=== PATIENT | male | born 1945 | race Caucasian/White ===

== ENCOUNTER 2021-02-22 10:38 | Inpatient (IN) | payer MEDICARE ==
[~2021-02-22] VITALS: Ht 167.6 cm; Wt 81.6 kg
[2021-02-22] MEDS ORDERED: DEXAMETHASONE SOD PHOS 10 MG/1 ML VIAL IV ONE (11:00)
[2021-02-22 11:10] LABS: BASOPHILS % 0.1 % (0.0-1.0); HEMATOCRIT 31.9 % (38.2-49.6); HEMOGLOBIN 8.7 g/dL (14.0-18.0); LYMPHOCYTES # (AUTO) 1.3 (1.0-3.2); LYMPHOCYTES % 16.9 % (18.0-39.1); MEAN CORPUSCULAR HEMOGLOBIN 17.4 pg (28-32); MEAN CORPUSCULAR HGB CONC 27.3 g/dL (31-35); MEAN CORPUSCULAR VOLUME 63.8 fL (81-99); MONOCYTES % 13.1 % (4.4-11.3); NEUTROPHILS # (AUTO) 5.4 (2.1-6.9); NEUTROPHILS % 69.6 % (38.7-80.0); PLATELET COUNT 271 x10e3/uL (140-360); RED CELL DISTRIBUTION WIDTH 22.9 % (11.7-14.4)
[2021-02-22] MEDS ORDERED: KETOROLAC TROMETHAMINE 30 MG/ML VIAL IV STA (11:11)
[2021-02-22] MEDS ORDERED: ONDANSETRON HCL INJ 2MG/ML 2ML 2 MG/ML VIAL IV PRN (11:15)
[2021-02-22] MEDS ORDERED: SODIUM CHLORIDE 0.9% 1000ML 1,000 ML IV SCH ×2 (11:15)
[2021-02-22] MEDS ORDERED: ACETAMINOPHEN 325 MG TAB PO ONE (11:15)
[2021-02-22 11:38] LABS: ANION GAP 16.7 mmol/L (8-16); CREATININE, SERUM 1.13 mg/dL (0.72-1.25); POTASSIUM 3.7 mmol/L (3.5-5.1)
[2021-02-22] MEDS ORDERED: FOLIC ACID-VIT1 EACH PO (12:12)
[2021-02-22] MEDS ORDERED: PLAVIX75 MG PO (12:12)
[2021-02-22] MEDS ORDERED: LISINOPRIL2.5 MG PO (12:12)
[2021-02-22] MEDS ORDERED: PANTOPRAZOLE SO20 MG (12:12)
[2021-02-22] MEDS ORDERED: PANTOPRAZOLE SO40 M2 (12:12)
[2021-02-22] MEDS ORDERED: ARICEPT5 MG PO (12:12)
[2021-02-22] MEDS ORDERED: ATORVASTATIN CA10 MG PO (12:12)
[2021-02-22] MEDS ORDERED: B12 ACTIVE1000 MCG (12:12)
[2021-02-22] MEDS ORDERED: ASPIRIN81 MG PO (12:12)
[2021-02-22] MEDS ORDERED: ACETAMINOPHEN 325 MG TAB PO PRN (15:30)
[2021-02-22] MEDS ORDERED: REMDESIVIR 200MG 200 MG in SODIUM CHLORIDE 0.9% 100 ML IV ONE (16:00)
[2021-02-22] MEDS: CEFTRIAXONE 1 GM in SODIUM CHLORIDE 0.9% 50ML 50 ML IV SCH (16:52)
[2021-02-22] MEDS: ENOXAPARIN SOD INJ 40 MG/0.4 ML SYR SC SCH (16:52)
[2021-02-22] MEDS ORDERED: SODIUM CHLORIDE 0.9% 250ML 250 ML ONE (16:54)
[2021-02-22] MEDS ORDERED: SODIUM CHLORIDE 0.9% 100 ML ONE (16:58)
[2021-02-22 20:00] VITALS: BP_SYST 106; BP_SYST 116; BP_DIAS 70; BP_DIAS 76
[2021-02-22 21:00] VITALS: BP 106/76
[2021-02-23] VITALS (9 sets, daily range): BP systolic 119–151; BP diastolic 68–86
[2021-02-23 06:33] LABS: HEMATOCRIT 31.2 % (38.2-49.6); HEMOGLOBIN 8.3 g/dL (14.0-18.0); MEAN CORPUSCULAR HEMOGLOBIN 17.3 pg (28-32); MEAN CORPUSCULAR HGB CONC 26.6 g/dL (31-35); MONOCYTES # (AUTO) 0.8 (0.2-0.8); MONOCYTES % 11.5 % (4.4-11.3); NEUTROPHILS % 73.1 % (38.7-80.0); PLATELET COUNT 280 x10e3/uL (140-360); RED CELL DISTRIBUTION WIDTH 23.1 % (11.7-14.4)
[2021-02-23 07:16] LABS: ANION GAP 12.9 mmol/L (8-16); CREATININE, SERUM 0.8 mg/dL (0.72-1.25); POTASSIUM 3.9 mmol/L (3.5-5.1)
[2021-02-23 07:36] LABS: % IRON SATURATION 5 % (15-50); IRON 16 ug/dL (65-175); TOTAL IRON BINDING CAPACITY 349 ug/dL (261-478); TRANSFERRIN 249 mg/dL (174-364)
[2021-02-23] MEDS: ASPIRIN 81 MG ENTERIC COATED PO SCH (09:24)
[2021-02-23] MEDS: CEFTRIAXONE 1 GM in SODIUM CHLORIDE 0.9% 50ML 50 ML IV SCH (09:24)
[2021-02-23] MEDS: DEXAMETHASONE SOD PHOS INJ 4 MG/ML SDV IV SCH (09:24)
[2021-02-23] MEDS: REMDESIVIR 100MG 100 MG in SODIUM CHLORIDE 0.9% 100 ML IV SCH (15:16)
[2021-02-23] MEDS: IRON SUCROSE 100 MG in SODIUM CHLORIDE 0.9% 100 ML 100 ML IV SCH (15:18)
[2021-02-23] MEDS: ENOXAPARIN SOD INJ 40 MG/0.4 ML SYR SC SCH (16:31)
[2021-02-24 04:00] VITALS: BP 136/77
[2021-02-24] MEDS: ASPIRIN 81 MG ENTERIC COATED PO SCH (08:29)
[2021-02-24] MEDS: CEFTRIAXONE 1 GM in SODIUM CHLORIDE 0.9% 50ML 50 ML IV SCH (08:29)
[2021-02-24] MEDS: DEXAMETHASONE SOD PHOS INJ 4 MG/ML SDV IV SCH (08:29)
[2021-02-24 09:15] VITALS: BP 148/71
[2021-02-24 10:03] VITALS: BP 148/71
[2021-02-24] MEDS ORDERED: CLONIDINE HCL 0.1 MG TAB PO PRN (11:00)
[2021-02-24 12:05] VITALS: BP 131/79
[2021-02-24] MEDS: IRON SUCROSE 100 MG in SODIUM CHLORIDE 0.9% 100 ML 100 ML IV SCH (14:20)
[2021-02-24] MEDS: REMDESIVIR 100MG 100 MG in SODIUM CHLORIDE 0.9% 100 ML IV SCH (14:46)
[2021-02-24] MEDS: ENOXAPARIN SOD INJ 40 MG/0.4 ML SYR SC SCH (16:43)
[2021-02-24 18:00] VITALS: BP 136/87
[2021-02-24 21:00] VITALS: BP 121/69
[2021-02-24] MEDS: DONEPEZIL HCL 5 MG TAB PO SCH (21:06)
[2021-02-24] MEDS: ATORVASTATIN 40 MG TAB PO SCH (21:06)
[2021-02-25 00:11] VITALS: BP 128/74
[2021-02-25 04:21] VITALS: BP 138/82
[2021-02-25 06:03] LABS: BASOPHILS % 0.1 % (0.0-1.0); HEMATOCRIT 31.8 % (38.2-49.6); HEMOGLOBIN 8.5 g/dL (14.0-18.0); LYMPHOCYTES # (AUTO) 0.9 (1.0-3.2); LYMPHOCYTES % 9.6 % (18.0-39.1); MEAN CORPUSCULAR HEMOGLOBIN 17.3 pg (28-32); MEAN CORPUSCULAR HGB CONC 26.7 g/dL (31-35); MEAN CORPUSCULAR VOLUME 64.8 fL (81-99); MONOCYTES # (AUTO) 1.2 (0.2-0.8); MONOCYTES % 13.2 % (4.4-11.3); NEUTROPHILS # (AUTO) 6.8 (2.1-6.9); PLATELET COUNT 317 x10e3/uL (140-360); RED BLOOD COUNT 4.91 x10e6/uL (4.3-5.7); RED CELL DISTRIBUTION WIDTH 23.7 % (11.7-14.4)
[2021-02-25 06:54] LABS: ALBUMIN/GLOBULIN RATIO 0.9 (0.8-2.0); ANION GAP 11.4 mmol/L (8-16); CALCIUM 8.6 mg/dL (8.4-10.2); CREATININE, SERUM 0.77 mg/dL (0.72-1.25); POTASSIUM 4.4 mmol/L (3.5-5.1)
[2021-02-25 08:17] LABS: LYMPHOCYTES % (MANUAL) 10 % (19-48); MONOCYTES % (MANUAL) 12 % (3.4-9.0); NEUTROPHILS % (MANUAL) 78 % (40-74); NUCLEATED RED BLOOD CELLS 1; PLATELET ESTIMATE ADEQUATE; PLATELET MORPHOLOGY COMMENT FEW GIANT; RBC MORPHOLOGY COMMENT NORMAL
[2021-02-25] MEDS: DEXAMETHASONE SOD PHOS INJ 4 MG/ML SDV IV SCH (08:44)
[2021-02-25] MEDS: CEFTRIAXONE 1 GM in SODIUM CHLORIDE 0.9% 50ML 50 ML IV SCH (08:45)
[2021-02-25] MEDS: CLOPIDOGREL BISULFATE 75 MG TAB PO SCH (08:45)
[2021-02-25] MEDS: ASPIRIN 81 MG ENTERIC COATED PO SCH (08:45)
[2021-02-25] MEDS: ASCORBIC ACID 500 MG TAB PO SCH (08:46)
[2021-02-25] MEDS: PANTOPRAZOLE SODIUM 40 MG SUSPDR.PKT PO SCH (08:46)
[2021-02-25] MEDS: LISINOPRIL 2.5 MG TAB PO SCH (08:56)
[2021-02-25 08:57] VITALS: BP 135/77
[2021-02-25] MEDS ORDERED: ASPIRIN 81 MG CHEW TAB PO SCH (09:00)
[2021-02-25 12:00] VITALS: BP 135/72
[2021-02-25] MEDS: REMDESIVIR 100MG 100 MG in SODIUM CHLORIDE 0.9% 100 ML IV SCH (13:45)
[2021-02-25] MEDS: IRON SUCROSE 100 MG in SODIUM CHLORIDE 0.9% 100 ML 100 ML IV SCH (15:30)
[2021-02-25] MEDS: ENOXAPARIN SOD INJ 40 MG/0.4 ML SYR SC SCH (16:36)
[2021-02-25 20:00] VITALS: BP 115/90
[2021-02-25] MEDS: ATORVASTATIN 40 MG TAB PO SCH (20:57)
[2021-02-25] MEDS: DONEPEZIL HCL 5 MG TAB PO SCH (20:57)
[2021-02-25 21:00] VITALS: BP 115/90
[2021-02-26] VITALS (8 sets, daily range): BP systolic 121–141; BP diastolic 59–82
[2021-02-26] MEDS ORDERED: CEFTRIAXONE 1 GM VIAL ONE (08:11)
[2021-02-26] MEDS: PANTOPRAZOLE SODIUM 40 MG SUSPDR.PKT PO SCH (09:00)
[2021-02-26] MEDS: CEFTRIAXONE 1 GM in SODIUM CHLORIDE 0.9% 50ML 50 ML IV SCH (09:00)
[2021-02-26] MEDS: CLOPIDOGREL BISULFATE 75 MG TAB PO SCH (09:00)
[2021-02-26] MEDS: LISINOPRIL 2.5 MG TAB PO SCH (09:00)
[2021-02-26] MEDS: ASPIRIN 81 MG ENTERIC COATED PO SCH (09:00)
[2021-02-26] MEDS: ASCORBIC ACID 500 MG TAB PO SCH (09:00)
[2021-02-26] MEDS: DEXAMETHASONE SOD PHOS INJ 4 MG/ML SDV IV SCH (09:00)
[2021-02-26] MEDS: REMDESIVIR 100MG 100 MG in SODIUM CHLORIDE 0.9% 100 ML IV SCH (14:00)
[2021-02-26] MEDS: IRON SUCROSE 100 MG in SODIUM CHLORIDE 0.9% 100 ML 100 ML IV SCH (15:00)
[2021-02-26] MEDS: ENOXAPARIN SOD INJ 40 MG/0.4 ML SYR SC SCH (16:10)
[2021-02-26] MEDS ORDERED: REMDESIVIR 100MG 100 MG in SODIUM CHLORIDE 0.9% 100 ML IV SCH (16:30)
[2021-02-26] MEDS: ATORVASTATIN 40 MG TAB PO SCH (19:54)
[2021-02-26] MEDS: DONEPEZIL HCL 5 MG TAB PO SCH (19:54)
[2021-02-27] VITALS: BP 140/71
[2021-02-27 04:00] VITALS: BP 134/76
[2021-02-27 06:49] LABS: BASOPHILS % 0.1 % (0.0-1.0); EOSINOPHILS % 0.1 % (0.0-6.0); HEMATOCRIT 32.2 % (38.2-49.6); LYMPHOCYTES # (AUTO) 1.3 (1.0-3.2); LYMPHOCYTES % 9.4 % (18.0-39.1); MEAN CORPUSCULAR HEMOGLOBIN 18.1 pg (28-32); MEAN CORPUSCULAR VOLUME 64.7 fL (81-99); MONOCYTES # (AUTO) 1.3 (0.2-0.8); MONOCYTES % 9.7 % (4.4-11.3); NEUTROPHILS # (AUTO) 10.5 (2.1-6.9); PLATELET COUNT 358 x10e3/uL (140-360); RED BLOOD COUNT 4.98 x10e6/uL (4.3-5.7); RED CELL DISTRIBUTION WIDTH 23.7 % (11.7-14.4)
[2021-02-27 07:26] LABS: ALBUMIN 2.9 g/dL (3.5-5.0); ALBUMIN/GLOBULIN RATIO 0.9 (0.8-2.0); ANION GAP 11.8 mmol/L (8-16); CALCIUM 8.4 mg/dL (8.4-10.2); CREATININE, SERUM 0.68 mg/dL (0.72-1.25); POTASSIUM 3.8 mmol/L (3.5-5.1)
[2021-02-27 08:00] VITALS: BP 127/73
[2021-02-27] MEDS: ASPIRIN 81 MG ENTERIC COATED PO SCH (09:00)
[2021-02-27] MEDS: LISINOPRIL 2.5 MG TAB PO SCH (09:00)
[2021-02-27] MEDS: PANTOPRAZOLE SODIUM 40 MG SUSPDR.PKT PO SCH (09:00)
[2021-02-27] MEDS: ASCORBIC ACID 500 MG TAB PO SCH (09:00)
[2021-02-27] MEDS: CLOPIDOGREL BISULFATE 75 MG TAB PO SCH (09:00)
[2021-02-27] MEDS: DEXAMETHASONE SOD PHOS INJ 4 MG/ML SDV IV SCH (09:00)
[2021-02-27 11:14] VITALS: BP 127/74
[2021-02-27 12:00] VITALS: BP 126/73
[2021-02-27] MEDS ORDERED: BISACODYL 5 MG TAB EC PO ONE (14:00)
[2021-02-27] MEDS: DOCUSATE SODIUM 100 MG CAP PO SCH (14:03)
[2021-02-27] MEDS: IRON SUCROSE 100 MG in SODIUM CHLORIDE 0.9% 100 ML 100 ML IV SCH (14:04)
[2021-02-27 16:00] VITALS: BP 103/68
[2021-02-27] MEDS: ENOXAPARIN SOD INJ 40 MG/0.4 ML SYR SC SCH (16:39)
[2021-02-27] MEDS: ATORVASTATIN 40 MG TAB PO SCH (20:27)
[2021-02-27] MEDS: DONEPEZIL HCL 5 MG TAB PO SCH (20:27)
[2021-02-28] VITALS (9 sets, daily range): BP systolic 117–148; BP diastolic 51–92
[2021-02-28 05:21] LABS: BASOPHILS % 0.1 % (0.0-1.0); EOSINOPHILS % 0.1 % (0.0-6.0); HEMATOCRIT 37.1 % (38.2-49.6); HEMOGLOBIN 9.8 g/dL (14.0-18.0); LYMPHOCYTES # (AUTO) 1.1 (1.0-3.2); LYMPHOCYTES % 6.4 % (18.0-39.1); MEAN CORPUSCULAR HEMOGLOBIN 17.9 pg (28-32); MEAN CORPUSCULAR HGB CONC 26.4 g/dL (31-35); MEAN CORPUSCULAR VOLUME 67.7 fL (81-99); MONOCYTES % 5.9 % (4.4-11.3); NEUTROPHILS % 84.4 % (38.7-80.0); PLATELET COUNT 360 x10e3/uL (140-360); RED BLOOD COUNT 5.48 x10e6/uL (4.3-5.7); RED CELL DISTRIBUTION WIDTH 25.9 % (11.7-14.4)
[2021-02-28 05:44] LABS: ALBUMIN 3.1 g/dL (3.5-5.0); ALBUMIN/GLOBULIN RATIO 0.9 (0.8-2.0); ANION GAP 12.2 mmol/L (8-16); CALCIUM 8.7 mg/dL (8.4-10.2); CREATININE, SERUM 0.77 mg/dL (0.72-1.25); POTASSIUM 4.2 mmol/L (3.5-5.1)
[2021-02-28] MEDS: PANTOPRAZOLE SODIUM 40 MG SUSPDR.PKT PO SCH (09:17)
[2021-02-28] MEDS: CLOPIDOGREL BISULFATE 75 MG TAB PO SCH (09:17)
[2021-02-28] MEDS: LISINOPRIL 2.5 MG TAB PO SCH (09:17)
[2021-02-28] MEDS: ASCORBIC ACID 500 MG TAB PO SCH (09:17)
[2021-02-28] MEDS: ASPIRIN 81 MG ENTERIC COATED PO SCH (09:17)
[2021-02-28] MEDS: DOCUSATE SODIUM 100 MG CAP PO SCH (09:17)
[2021-02-28] MEDS: DEXAMETHASONE SOD PHOS INJ 4 MG/ML SDV IV SCH (09:17)
[2021-02-28 11:01] LABS: LYMPHOCYTES % (MANUAL) 10 % (19-48); MONOCYTES % (MANUAL) 5 % (3.4-9.0); NEUTROPHILS % (MANUAL) 85 % (40-74)
[2021-02-28 11:02] LABS: HYPOCHROMASIA MODERATE; OVALOCYTES FEW; PLATELET ESTIMATE ADEQUATE; PLATELET MORPHOLOGY COMMENT NORMAL; POLYCHROMASIA MODE; RBC MORPHOLOGY COMMENT NORMAL
[2021-02-28] MEDS: ENOXAPARIN SOD INJ 40 MG/0.4 ML SYR SC SCH (16:39)
[2021-02-28] MEDS: DEXMEDETOMIDINE 400MCG/NS100ML 100 ML IV PRN (20:03)
[2021-02-28] MEDS: ATORVASTATIN 40 MG TAB PO SCH (20:46)
[2021-02-28] MEDS: DONEPEZIL HCL 5 MG TAB PO SCH (20:46)
[2021-03-01] VITALS (10 sets, daily range): BP systolic 82–97; BP diastolic 55–63
[2021-03-01 04:12] LABS: BASOPHILS % 0.1 % (0.0-1.0); EOSINOPHILS % 0.1 % (0.0-6.0); HEMATOCRIT 34.9 % (38.2-49.6); HEMOGLOBIN 9.3 g/dL (14.0-18.0); LYMPHOCYTES # (AUTO) 0.7 (1.0-3.2); LYMPHOCYTES % 4.7 % (18.0-39.1); MEAN CORPUSCULAR HEMOGLOBIN 18.6 pg (28-32); MEAN CORPUSCULAR HGB CONC 26.6 g/dL (31-35); MEAN CORPUSCULAR VOLUME 69.9 fL (81-99); MONOCYTES # (AUTO) 0.7 (0.2-0.8); MONOCYTES % 4.6 % (4.4-11.3); NEUTROPHILS # (AUTO) 12.9 (2.1-6.9); NEUTROPHILS % 88.5 % (38.7-80.0); PLATELET COUNT 335 x10e3/uL (140-360); RED BLOOD COUNT 4.99 x10e6/uL (4.3-5.7); RED CELL DISTRIBUTION WIDTH 27.1 % (11.7-14.4)
[2021-03-01 04:32] LABS: ALBUMIN/GLOBULIN RATIO 0.9 (0.8-2.0); ANION GAP 13.3 mmol/L (8-16); CALCIUM 8.6 mg/dL (8.4-10.2); CREATININE, SERUM 0.83 mg/dL (0.72-1.25); POTASSIUM 4.3 mmol/L (3.5-5.1)
[2021-03-01] MEDS: PANTOPRAZOLE SODIUM 40 MG SUSPDR.PKT PO SCH (07:46)
[2021-03-01] MEDS: DOCUSATE SODIUM 100 MG CAP PO SCH (07:46)
[2021-03-01] MEDS: CLOPIDOGREL BISULFATE 75 MG TAB PO SCH (07:46)
[2021-03-01] MEDS: ASCORBIC ACID 500 MG TAB PO SCH (07:46)
[2021-03-01] MEDS: LISINOPRIL 2.5 MG TAB PO SCH (07:46)
[2021-03-01] MEDS: ASPIRIN 81 MG ENTERIC COATED PO SCH (07:46)
[2021-03-01] MEDS: DEXAMETHASONE SOD PHOS INJ 4 MG/ML SDV IV SCH (09:52)
[2021-03-01] MEDS: PIPERACILLIN/TAZOBACTAM 3.375 GM in SODIUM CHLORIDE 0.9% 50ML 50 ML IV SCH ×2 (16:05→22:00)
[2021-03-01] MEDS: ENOXAPARIN SOD INJ 40 MG/0.4 ML SYR SC SCH (16:05)
[2021-03-01] MEDS: DEXMEDETOMIDINE 400MCG/NS100ML 100 ML IV PRN (17:41)
[2021-03-01] MEDS: DONEPEZIL HCL 5 MG TAB PO SCH (20:54)
[2021-03-01] MEDS: ATORVASTATIN 40 MG TAB PO SCH (20:55)
[2021-03-02] VITALS (11 sets, daily range): BP systolic 95–124; BP diastolic 57–73
[2021-03-02] MEDS: PIPERACILLIN/TAZOBACTAM 3.375 GM in SODIUM CHLORIDE 0.9% 50ML 50 ML IV SCH ×3 (04:53→22:25)
[2021-03-02] MEDS: DEXMEDETOMIDINE 400MCG/NS100ML 100 ML IV PRN ×2 (05:30→17:30)
[2021-03-02] MEDS: CLOPIDOGREL BISULFATE 75 MG TAB PO SCH (08:35)
[2021-03-02] MEDS: DOCUSATE SODIUM 100 MG CAP PO SCH (08:35)
[2021-03-02] MEDS: ASPIRIN 81 MG ENTERIC COATED PO SCH (08:35)
[2021-03-02] MEDS: ASCORBIC ACID 500 MG TAB PO SCH (08:35)
[2021-03-02] MEDS: PANTOPRAZOLE SODIUM 40 MG SUSPDR.PKT PO SCH (08:35)
[2021-03-02] MEDS: DEXAMETHASONE SOD PHOS INJ 4 MG/ML SDV IV SCH (08:51)
[2021-03-02] MEDS: ENOXAPARIN SOD INJ 40 MG/0.4 ML SYR SC SCH (16:23)
[2021-03-02] MEDS: DONEPEZIL HCL 5 MG TAB PO SCH (20:12)
[2021-03-02] MEDS: ATORVASTATIN 40 MG TAB PO SCH (20:12)
[2021-03-03] VITALS (19 sets, daily range): BP systolic 87–118; BP diastolic 57–68
[2021-03-03] MEDS: DEXMEDETOMIDINE 400MCG/NS100ML 100 ML IV PRN ×3 (00:27→16:54)
[2021-03-03 05:48] LABS: BASOPHILS % 0.1 % (0.0-1.0); EOSINOPHILS % 0.2 % (0.0-6.0); HEMOGLOBIN 9.9 g/dL (14.0-18.0); LYMPHOCYTES # (AUTO) 0.5 (1.0-3.2); LYMPHOCYTES % 2.9 % (18.0-39.1); MEAN CORPUSCULAR HEMOGLOBIN 18.8 pg (28-32); MEAN CORPUSCULAR HGB CONC 26.1 g/dL (31-35); MEAN CORPUSCULAR VOLUME 72.1 fL (81-99); MONOCYTES # (AUTO) 0.8 (0.2-0.8); MONOCYTES % 4.9 % (4.4-11.3); NEUTROPHILS # (AUTO) 15.2 (2.1-6.9); NEUTROPHILS % 91.1 % (38.7-80.0); PLATELET COUNT 340 x10e3/uL (140-360); RED BLOOD COUNT 5.27 x10e6/uL (4.3-5.7); RED CELL DISTRIBUTION WIDTH 29.6 % (11.7-14.4)
[2021-03-03] MEDS: PIPERACILLIN/TAZOBACTAM 3.375 GM in SODIUM CHLORIDE 0.9% 50ML 50 ML IV SCH ×3 (06:03→21:52)
[2021-03-03 06:24] LABS: ALBUMIN 2.9 g/dL (3.5-5.0); ALBUMIN/GLOBULIN RATIO 0.8 (0.8-2.0); ANION GAP 14.4 mmol/L (8-16); CALCIUM 8.8 mg/dL (8.4-10.2); CREATININE, SERUM 0.86 mg/dL (0.72-1.25); POTASSIUM 4.4 mmol/L (3.5-5.1)
[2021-03-03] MEDS: CLOPIDOGREL BISULFATE 75 MG TAB PO SCH (09:00)
[2021-03-03] MEDS: ASPIRIN 81 MG ENTERIC COATED PO SCH (09:00)
[2021-03-03] MEDS: PANTOPRAZOLE SODIUM 40 MG SUSPDR.PKT PO SCH (09:00)
[2021-03-03] MEDS: ASCORBIC ACID 500 MG TAB PO SCH (09:00)
[2021-03-03] MEDS: DOCUSATE SODIUM 100 MG CAP PO SCH (09:00)
[2021-03-03] MEDS: DEXAMETHASONE SOD PHOS INJ 4 MG/ML SDV IV SCH (09:44)
[2021-03-03] MEDS ORDERED: DEXTROSE 5%/0.9% SOD CHL 1,000 ML IV ONE (16:15)
[2021-03-03] MEDS ORDERED: DEXTROSE 5% 1,000 ML IV SCH (16:30)
[2021-03-03] MEDS: ENOXAPARIN SOD INJ 40 MG/0.4 ML SYR SC SCH (19:19)
[2021-03-03] MEDS: ATORVASTATIN 40 MG TAB PO SCH (21:00)
[2021-03-03] MEDS: DONEPEZIL HCL 5 MG TAB PO SCH (21:00)
[2021-03-03] MEDS ORDERED: DEXTROSE 5%/0.45% SOD CHL 1,000 ML IV SCH (21:45)
[2021-03-04] VITALS (13 sets, daily range): BP systolic 99–124; BP diastolic 64–99
[2021-03-04] MEDS: DEXMEDETOMIDINE 400MCG/NS100ML 100 ML IV PRN ×2 (00:41→09:21)
[2021-03-04 06:21] LABS: BASOPHILS % 0.1 % (0.0-1.0); EOSINOPHILS # (AUTO) 0.1 (0.0-0.4); EOSINOPHILS % 0.8 % (0.0-6.0); HEMATOCRIT 39.1 % (38.2-49.6); HEMOGLOBIN 10.4 g/dL (14.0-18.0); LYMPHOCYTES # (AUTO) 0.5 (1.0-3.2); LYMPHOCYTES % 2.9 % (18.0-39.1); MEAN CORPUSCULAR HEMOGLOBIN 19.1 pg (28-32); MEAN CORPUSCULAR HGB CONC 26.6 g/dL (31-35); MEAN CORPUSCULAR VOLUME 71.9 fL (81-99); MONOCYTES # (AUTO) 0.7 (0.2-0.8); MONOCYTES % 4.1 % (4.4-11.3); NEUTROPHILS # (AUTO) 15.5 (2.1-6.9); NEUTROPHILS % 91.4 % (38.7-80.0); PLATELET COUNT 353 x10e3/uL (140-360); RED BLOOD COUNT 5.44 x10e6/uL (4.3-5.7); RED CELL DISTRIBUTION WIDTH 30.5 % (11.7-14.4)
[2021-03-04 06:26] LABS: ANION GAP 13.9 mmol/L (8-16); CALCIUM 8.9 mg/dL (8.4-10.2); CREATININE, SERUM 0.86 mg/dL (0.72-1.25); POTASSIUM 3.9 mmol/L (3.5-5.1)
[2021-03-04] MEDS: ASPIRIN 81 MG ENTERIC COATED PO SCH (07:58)
[2021-03-04] MEDS: CLOPIDOGREL BISULFATE 75 MG TAB PO SCH (07:59)
[2021-03-04] MEDS: ASCORBIC ACID 500 MG TAB PO SCH (07:59)
[2021-03-04] MEDS: DOCUSATE SODIUM 100 MG CAP PO SCH (07:59)
[2021-03-04] MEDS: PANTOPRAZOLE SODIUM 40 MG SUSPDR.PKT PO SCH (07:59)
[2021-03-04] MEDS: DEXTROSE 5% 1,000 ML IV SCH ×2 (09:21→20:47)
[2021-03-04] MEDS: ENOXAPARIN SOD INJ 40 MG/0.4 ML SYR SC SCH (16:52)
[2021-03-04] MEDS ORDERED: DILTIAZEM HCL 5 MG/ML 5 ML VIAL IV ONE (18:55)
[2021-03-04] MEDS ORDERED: DIGOXIN INJ 0.25 MG/ML 2 ML AMP IV ONE (19:25)
[2021-03-04] MEDS: ATORVASTATIN 40 MG TAB PO SCH (20:40)
[2021-03-04] MEDS: DONEPEZIL HCL 5 MG TAB PO SCH (20:40)
[2021-03-04] MEDS ORDERED: SODIUM CHLORIDE 0.9% 250ML 250 ML ONE (23:28)
[2021-03-05] VITALS (13 sets, daily range): BP systolic 78–129; BP diastolic 41–87
[2021-03-05] MEDS ORDERED: SODIUM CHLORIDE 0.9% 500ML 500 ML ONE (03:20)
[2021-03-05 03:47] LABS: BASOPHILS % 0.1 % (0.0-1.0); EOSINOPHILS # (AUTO) 0.2 (0.0-0.4); EOSINOPHILS % 1.3 % (0.0-6.0); HEMATOCRIT 37.4 % (38.2-49.6); HEMOGLOBIN 9.8 g/dL (14.0-18.0); LYMPHOCYTES # (AUTO) 0.5 (1.0-3.2); LYMPHOCYTES % 3.1 % (18.0-39.1); MEAN CORPUSCULAR HEMOGLOBIN 19.3 pg (28-32); MEAN CORPUSCULAR HGB CONC 26.2 g/dL (31-35); MEAN CORPUSCULAR VOLUME 73.8 fL (81-99); MONOCYTES # (AUTO) 0.7 (0.2-0.8); MONOCYTES % 4.8 % (4.4-11.3); NEUTROPHILS # (AUTO) 13.2 (2.1-6.9); NEUTROPHILS % 90.2 % (38.7-80.0); PLATELET COUNT 269 x10e3/uL (140-360); RED BLOOD COUNT 5.07 x10e6/uL (4.3-5.7); RED CELL DISTRIBUTION WIDTH 30.2 % (11.7-14.4)
[2021-03-05 04:06] LABS: ALBUMIN 2.4 g/dL (3.5-5.0); ALBUMIN/GLOBULIN RATIO 0.6 (0.8-2.0); ANION GAP 12.9 mmol/L (8-16); CALCIUM 8.2 mg/dL (8.4-10.2); CREATININE, SERUM 0.97 mg/dL (0.72-1.25); POTASSIUM 3.9 mmol/L (3.5-5.1)
[2021-03-05] MEDS: DEXMEDETOMIDINE 400MCG/NS100ML 100 ML IV PRN ×3 (08:00→19:30)
[2021-03-05] MEDS: ASPIRIN 81 MG ENTERIC COATED PO SCH (09:00)
[2021-03-05] MEDS: CLOPIDOGREL BISULFATE 75 MG TAB PO SCH (09:00)
[2021-03-05] MEDS: PANTOPRAZOLE SODIUM 40 MG SUSPDR.PKT PO SCH (09:00)
[2021-03-05] MEDS: BACITRACIN ZINC 15 GM OINT TOP SCH (09:00)
[2021-03-05] MEDS: ASCORBIC ACID 500 MG TAB PO SCH (09:00)
[2021-03-05] MEDS: DOCUSATE SODIUM 100 MG CAP PO SCH (09:00)
[2021-03-05] MEDS: DEXTROSE 5% 1,000 ML IV SCH (12:18)
[2021-03-05] MEDS: CEFEPIME 1 GM in SODIUM CHLORIDE 0.9% 50ML 50 ML IV SCH ×2 (14:30→22:05)
[2021-03-05] MEDS ORDERED: DIGOXIN INJ 0.25 MG/ML 2 ML AMP IV NR (14:45)
[2021-03-05] MEDS ORDERED: ENOXAPARIN SOD INJ 40 MG/0.4 ML SYR SC SCH (17:00)
[2021-03-05] MEDS: ATORVASTATIN 40 MG TAB PO SCH (21:00)
[2021-03-05] MEDS: DONEPEZIL HCL 5 MG TAB PO SCH (21:00)
[2021-03-06] VITALS (24 sets, daily range): BP systolic 74–141; BP diastolic 44–92
[2021-03-06] MEDS: DEXTROSE 5% 1,000 ML IV SCH ×2 (03:01→13:30)
[2021-03-06] MEDS: DEXMEDETOMIDINE 400MCG/NS100ML 100 ML IV PRN ×3 (03:30→16:32)
[2021-03-06 06:05] LABS: BASOPHILS % 0.1 % (0.0-1.0); EOSINOPHILS % 0.2 % (0.0-6.0); HEMATOCRIT 34.2 % (38.2-49.6); LYMPHOCYTES # (AUTO) 0.5 (1.0-3.2); LYMPHOCYTES % 4.1 % (18.0-39.1); MEAN CORPUSCULAR HEMOGLOBIN 19.6 pg (28-32); MEAN CORPUSCULAR HGB CONC 26.3 g/dL (31-35); MEAN CORPUSCULAR VOLUME 74.5 fL (81-99); MONOCYTES # (AUTO) 0.6 (0.2-0.8); MONOCYTES % 4.3 % (4.4-11.3); NEUTROPHILS # (AUTO) 11.6 (2.1-6.9); NEUTROPHILS % 90.5 % (38.7-80.0); PLATELET COUNT 159 x10e3/uL (140-360); RED BLOOD COUNT 4.59 x10e6/uL (4.3-5.7); RED CELL DISTRIBUTION WIDTH 30.6 % (11.7-14.4)
[2021-03-06] MEDS: CEFEPIME 1 GM in SODIUM CHLORIDE 0.9% 50ML 50 ML IV SCH ×3 (06:10→22:20)
[2021-03-06 07:26] LABS: ANION GAP 14.9 mmol/L (8-16); BILIRUBIN,DIRECT 1.7 mg/dL (0.0-0.5); CALCIUM 7.5 mg/dL (8.4-10.2); CREATININE, SERUM 0.82 mg/dL (0.72-1.25); POTASSIUM 3.9 mmol/L (3.5-5.1)
[2021-03-06] MEDS: ASPIRIN 81 MG ENTERIC COATED PO SCH (09:00)
[2021-03-06] MEDS: CLOPIDOGREL BISULFATE 75 MG TAB PO SCH (09:00)
[2021-03-06] MEDS: DOCUSATE SODIUM 100 MG CAP PO SCH (09:00)
[2021-03-06] MEDS: ASCORBIC ACID 500 MG TAB PO SCH (09:00)
[2021-03-06] MEDS: PANTOPRAZOLE SODIUM 40 MG SUSPDR.PKT PO SCH (09:00)
[2021-03-06] MEDS: BACITRACIN ZINC 15 GM OINT TOP SCH (09:44)
[2021-03-06] MEDS ORDERED: METOPROLOL TARTRATE INJ 1 MG/ML VIAL IV PRN (11:30)
[2021-03-06] MEDS: ATORVASTATIN 40 MG TAB PO SCH (21:00)
[2021-03-06] MEDS: DONEPEZIL HCL 5 MG TAB PO SCH (21:00)
[2021-03-06] MEDS: ENOXAPARIN INJ 80 MG/0.8 ML SYR SC SCH (22:00)
[2021-03-06] MEDS ORDERED: LORAZEPAM INJ 2 MG/ML VIAL IV ONE (22:15)
[2021-03-07] VITALS (19 sets, daily range): BP systolic 71–140; BP diastolic 38–89
[2021-03-07] MEDS: CEFEPIME 1 GM in SODIUM CHLORIDE 0.9% 50ML 50 ML IV SCH ×2 (05:27→14:29)
[2021-03-07] MEDS: DEXTROSE 5% 1,000 ML IV SCH (05:27)
[2021-03-07 06:10] LABS: BASOPHILS % 0.2 % (0.0-1.0); HEMATOCRIT 34.9 % (38.2-49.6); LYMPHOCYTES # (AUTO) 0.7 (1.0-3.2); MEAN CORPUSCULAR HEMOGLOBIN 19.5 pg (28-32); MEAN CORPUSCULAR HGB CONC 25.8 g/dL (31-35); MEAN CORPUSCULAR VOLUME 75.7 fL (81-99); MONOCYTES # (AUTO) 1.1 (0.2-0.8); MONOCYTES % 5.1 % (4.4-11.3); NEUTROPHILS # (AUTO) 19.6 (2.1-6.9); NEUTROPHILS % 90.5 % (38.7-80.0); PLATELET COUNT 136 x10e3/uL (140-360); RED BLOOD COUNT 4.61 x10e6/uL (4.3-5.7); RED CELL DISTRIBUTION WIDTH 31.2 % (11.7-14.4)
[2021-03-07 06:30] LABS: INR 4.85
[2021-03-07 06:38] LABS: ALBUMIN 1.9 g/dL (3.5-5.0); BILIRUBIN,DIRECT 1.5 mg/dL (0.0-0.5); CALCIUM 7.8 mg/dL (8.4-10.2); CREATININE, SERUM 1.8 mg/dL (0.72-1.25)
[2021-03-07] MEDS ORDERED: SODIUM CHLORIDE 0.9% 250ML 250 ML IV STA (07:52)
[2021-03-07] MEDS ORDERED: NOREPINEPHRINE 8 MG/D5W 250 ML 250 ML IV PRN (08:00)
[2021-03-07] MEDS ORDERED: SODIUM CHLORIDE 0.9% 250ML 250 ML ONE (08:10)
[2021-03-07 08:30] LABS: LYMPHOCYTES % (MANUAL) 1 % (19-48); MONOCYTES % (MANUAL) 4 % (3.4-9.0); NEUTROPHILS % (MANUAL) 95 % (40-74)
[2021-03-07 08:31] LABS: PLATELET ESTIMATE ADEQUATE
[2021-03-07 08:36] LABS: ANISOCYTOSIS MARKED; ELLIPTOCYTE, RBC SLIGHT; HYPOCHROMASIA MODERATE; MICROCYTOSIS MODERATE; PLATELET MORPHOLOGY COMMENT NORMAL; RBC MORPHOLOGY COMMENT ABNORMAL; SCHISTOCYTES RARE
[2021-03-07 08:42] LABS: POIKILOCYTOSIS MODERATE
[2021-03-07] MEDS: CLOPIDOGREL BISULFATE 75 MG TAB PO SCH ×2 (09:00→09:03)
[2021-03-07] MEDS: DOCUSATE SODIUM 100 MG CAP PO SCH ×2 (09:00→09:03)
[2021-03-07] MEDS: ASPIRIN 81 MG ENTERIC COATED PO SCH ×2 (09:00→09:03)
[2021-03-07] MEDS: PANTOPRAZOLE SODIUM 40 MG SUSPDR.PKT PO SCH ×2 (09:00→09:03)
[2021-03-07] MEDS: ASCORBIC ACID 500 MG TAB PO SCH ×2 (09:00→09:03)
[2021-03-07] MEDS: BACITRACIN ZINC 15 GM OINT TOP SCH (09:03)
[2021-03-07] MEDS: ENOXAPARIN INJ 80 MG/0.8 ML SYR SC SCH (09:03)
[2021-03-07] MEDS ORDERED: DILTIAZEM HCL 5 MG/ML 5 ML VIAL IV ONE (10:25)
[2021-03-07] MEDS ORDERED: DILTIAZEM HCL 125 ML IV SCH (10:45)
[2021-03-07] MEDS ORDERED: FENTANYL 2000MCG/NS 250 250 ML IV SCH ×2 (11:45)
[2021-03-07] MEDS ORDERED: MIDAZOLAM HCL 5MG/ML 10ML VIAL 100 ML IV PRN ×2 (11:45)
[2021-03-07] MEDS ORDERED: ROCURONIUM 1250MG/NS 250 250 ML IV PRN ×2 (11:45)
[2021-03-07] MEDS ORDERED: SODIUM CHLORIDE 0.9% 1000ML 1,000 ML ONE (12:04)
[2021-03-07] MEDS ORDERED: FENTANYL 2000MCG/NS 250 250 ML IV PRN (14:00)
[2021-03-07] MEDS ORDERED: LORAZEPAM INJ 2 MG/ML VIAL IV PRN (15:45)
[2021-03-07] MEDS ORDERED: MORPHINE SULFATE INJ 4 MG/ML INJ 1ML IV PRN (15:45)
== END 2021-03-07 19:42 | disposition expired | DRG 208 ==
LOC: ER 10:45 → ERHOLD 11:05 → IMCU 18:30 → ICU 03-05 18:07
PROVIDERS: ADMIT Internal Medicine; ATTEND Internal Medicine
PROC: 3E0333Z Introduction of Anti-inflammatory into Peripheral Vein, Percutaneous Approach (ICD-10-PCS; principal; 2021-02-22)
PROC: XW033E5 Introduction of Remdesivir Anti-infective into Peripheral Vein, Percutaneous Approach, New Technology Group 5 (ICD-10-PCS; 2021-02-22)
PROC: 02HV33Z Insertion of Infusion Device into Superior Vena Cava, Percutaneous Approach (ICD-10-PCS; 2021-02-28)
PROC: 5A09457 Assistance with Respiratory Ventilation, 24-96 Consecutive Hours, Continuous Positive Airway Pressure (ICD-10-PCS; 2021-03-04)
PROC: 5A1935Z Respiratory Ventilation, Less than 24 Consecutive Hours (ICD-10-PCS; 2021-03-07)
PROC: 0BH17EZ Insertion of Endotracheal Airway into Trachea, Via Natural or Artificial Opening (ICD-10-PCS; 2021-03-07)
PROC: 5A12012 Performance of Cardiac Output, Single, Manual (ICD-10-PCS; 2021-03-07)
PROC: 5A2204Z Restoration of Cardiac Rhythm, Single (ICD-10-PCS; 2021-03-07)
PROC: 3E043XZ Introduction of Vasopressor into Central Vein, Percutaneous Approach (ICD-10-PCS; 2021-03-07)
DX: U07.1 COVID-19 (principal); J12.82 Pneumonia due to coronavirus disease 2019; J96.01 Acute respiratory failure with hypoxia; G93.41 Metabolic encephalopathy; K72.00 Acute and subacute hepatic failure without coma; E87.0 Hyperosmolality and hypernatremia; B19.9 Unspecified viral hepatitis without hepatic coma; N17.9 Acute kidney failure, unspecified; E87.2 Acidosis; I25.10 Atherosclerotic heart disease of native coronary artery without angina pectoris; F03.90 Unspecified dementia, unspecified severity, without behavioral disturbance, psychotic disturbance, mood disturbance, and anxiety; D50.9 Iron deficiency anemia, unspecified; I25.2 Old myocardial infarction; Z95.5 Presence of coronary angioplasty implant and graft; D50.0 Iron deficiency anemia secondary to blood loss (chronic); Z91.19 Patient's noncompliance with other medical treatment and regimen; R13.10 Dysphagia, unspecified; I48.0 Paroxysmal atrial fibrillation; I10 Essential (primary) hypertension; E78.00 Pure hypercholesterolemia, unspecified; I46.9 Cardiac arrest, cause unspecified
CPT/HCPCS: 31500; 36415; 36569; 71045; 80048; 80053; 80076; 82948; 83540; 83735; 84466; 84484; 85025; 85610; 86140; 87040; 92950; 93005; 94002; 94660; 99251; 99284; J0456; J0692; J0696; J1100; J1160; J1650; J1756; J2060; J2270; J2405; J2543; J7030; J7040; J7042; J7050; J7070; U0002